=== PATIENT | male | born 1935 | race Two or more races ===

== ENCOUNTER 2017-07-09 14:09 | Inpatient (IN) | payer MEDICARE, MEDICAID ==
[~2017-07-09] VITALS: Ht 167.6 cm; Wt 75.1 kg
[2017-07-09] MEDS ORDERED: ALBUTEROL SULF 2.5 MG/0.5ML(0.5%) NEB SOLN HHN ONE (14:45)
[2017-07-09] MEDS ORDERED: methylPREDNISolone SOD SUCC 125 MG/2 ML VL IV ONE (14:45)
[2017-07-09] MEDS ORDERED: IPRATROPIUM BROM 0.5 MG/2.5ML INH SOL HHN ONE (14:45)
[2017-07-09 16:07] LABS: Basophils # (auto) 0 uL; Basophils % (auto) 0.4 % (0.0-2.0); Eosinophils # (auto) 0.2 uL; Eosinophils % (auto) 1.6 % (0.0-7.0); Hematocrit 45.7 % (41.0-53.0); Hemoglobin 14.9 g/dL (13.5-17.5); Lymphocytes # (auto) 1.7 uL; Lymphocytes % (auto) 13.6 % (10.0-50.0); Mean Corpuscular Hemoglobin 29.1 pg (28.0-32.0); Mean Corpuscular Hgb Conc. 32.7 g/dL (32.0-36.0); Mean Corpuscular Volume 89.2 fL (80.0-100.0); Monocytes # (auto) 1.6 uL; Monocytes % (auto) 13.2 % (0.0-12.0); Neutrophils # (auto) 8.9 uL; Neutrophils % (auto) 71.2 % (37.0-80.0); Nucleated Red Blood Cells % 0.1 %; Platelet Count (auto) 281 10^3/uL (140-450); Red Blood Cells 5.12 10^6/uL (4.5-5.90); Red Cell Distribution Width 13.8 % (11.8-14.3); White Blood Cell 12.5 10^3/uL (4.4-10.8)
[2017-07-09 16:23] LABS: Albumin 3.5 g/dL (3.4-5.0); BUN/Creatinine Ratio 12.1; Bilirubin, Total 0.6 mg/dL (0.2-1.0); Calcium 8.9 mg/dL (8.5-10.1); Total Protein 8.4 g/dL (6.4-8.2)
[2017-07-09 16:25] LABS: Lactic Acid w/Reflex 2.8 mmol/L (0.4-2.0)
[2017-07-09] MEDS ORDERED: cefTRIAXone 1GM/10ml IVPUSH 10 ML IV ONE (17:15)
[2017-07-09] MEDS ORDERED: MORPHINE SULF INJ 2 MG/ML SYRINGE 1ML IV PRN ×2 (19:30)
[2017-07-09] MEDS ORDERED: LORazepam 0.5 MG TAB PO PRN (19:30)
[2017-07-09] MEDS ORDERED: DOCUSATE SOD 100 MG CAP PO PRN (19:30)
[2017-07-09] MEDS ORDERED: ONDANSETRON HCL 4 MG/2 ML VIAL IV PRN (19:30)
[2017-07-09] MEDS ORDERED: TEMAZEPAM 15 MG CAP PO PRN (19:30)
[2017-07-09] MEDS ORDERED: NITROGLYCERIN 0.4 MG SL TAB SL PRN (19:30)
[2017-07-09] MEDS ORDERED: METOCLOPRAMIDE HCL 5MG/ml INJ 2ml VIAL IV PRN (19:30)
[2017-07-09] MEDS ORDERED: HYDROcodone-ACET 5/325MG TAB PO PRN (19:30)
[2017-07-09] MEDS ORDERED: ACETAMINOPHEN 325 MG TAB PO PRN (19:30)
[2017-07-09] MEDS: methylPREDNISolone SOD SUCC 40 MG/ML VL IV SCH (19:53)
[2017-07-09] MEDS: SOD CHL 0.45% 1,000 ML IV SCH ×2 (19:53→22:01)
[2017-07-09 20:15] VITALS: BP 117/63
[2017-07-09 20:27] LABS: Urine Blood Negative /uL (Negative); Urine Specific Gravity 1.017 (1.001-1.035)
[2017-07-09 20:35] LABS: Urine Bacteria 1+ /hpf (None Seen); Urine WBC 30 /hpf (0 - 3)
[2017-07-09 20:56] VITALS: BP 148/75
[2017-07-09 22:10] VITALS: BP 117/63
[2017-07-10] MEDS ORDERED: [UNRECOGNIZED DRUG - CODE] IN (01:09)
[2017-07-10] MEDS ORDERED: TIOTCAP IN (01:09)
[2017-07-10] MEDS ORDERED: POM (01:09)
[2017-07-10 05:40] VITALS: BP 116/62
[2017-07-10] MEDS: methylPREDNISolone SOD SUCC 40 MG/ML VL IV SCH ×3 (06:06→18:02)
[2017-07-10 07:19] LABS: Basophils # (auto) 0 uL; Basophils % (auto) 0.4 % (0.0-2.0); Eosinophils # (auto) 0 uL; Hematocrit 41.3 % (41.0-53.0); Hemoglobin 13.9 g/dL (13.5-17.5); Lymphocytes # (auto) 0.8 uL; Lymphocytes % (auto) 7.6 % (10.0-50.0); Mean Corpuscular Hemoglobin 29.7 pg (28.0-32.0); Mean Corpuscular Hgb Conc. 33.6 g/dL (32.0-36.0); Mean Corpuscular Volume 88.2 fL (80.0-100.0); Monocytes # (auto) 0.4 uL; Monocytes % (auto) 4.4 % (0.0-12.0); Neutrophils # (auto) 8.8 uL; Neutrophils % (auto) 87.6 % (37.0-80.0); Nucleated Red Blood Cells % 0.1 %; Platelet Count (auto) 264 10^3/uL (140-450); Red Blood Cells 4.68 10^6/uL (4.5-5.90); Red Cell Distribution Width 13.7 % (11.8-14.3); White Blood Cell 10.1 10^3/uL (4.4-10.8)
[2017-07-10 07:28] LABS: Albumin 2.9 g/dL (3.4-5.0); Calcium 8.5 mg/dL (8.5-10.1); Potassium 4.6 mmol/L (3.5-5.1)
[2017-07-10 07:33] LABS: BUN/Creatinine Ratio 15.4; Bilirubin, Total 0.4 mg/dL (0.2-1.0); Total Protein 7.4 g/dL (6.4-8.2)
[2017-07-10] MEDS: ALBUTEROL SULF 2.5 MG/0.5ML(0.5%) NEB SOLN NEB PRN ×3 (07:42→19:06)
[2017-07-10 09:00] VITALS: BP 130/70
[2017-07-10] MEDS ORDERED: cefTRIAXone 1GM/10ml IVPUSH 10 ML IV ONE (10:00)
[2017-07-10 13:00] VITALS: BP 129/61
[2017-07-10 17:06] VITALS: BP 115/60
[2017-07-10 20:00] VITALS: BP 105/62
[2017-07-10] MEDS ORDERED: PIPERACILLIN-TAZOB 3.375GM 50 ML IV ONE (22:00)
[2017-07-10 22:03] VITALS: BP 123/72
[2017-07-11] MEDS: methylPREDNISolone SOD SUCC 40 MG/ML VL IV SCH ×4 (00:22→18:19)
[2017-07-11] MEDS: ALBUTEROL SULF 2.5 MG/0.5ML(0.5%) NEB SOLN NEB PRN ×3 (00:44→19:27)
[2017-07-11] MEDS: SOD CHL 0.45% 1,000 ML IV SCH ×2 (04:54→09:51)
[2017-07-11 05:37] VITALS: BP 91/44
[2017-07-11] MEDS: PIPERACILLIN-TAZOB 3.375GM 50 ML IV SCH ×3 (06:47→18:19)
[2017-07-11 09:00] VITALS: BP 79/51
[2017-07-11] MEDS ORDERED: cefTRIAXone 1GM/10ml IVPUSH 10 ML IV SCH (09:00)
[2017-07-11 13:00] VITALS: BP 139/77
[2017-07-11 20:00] VITALS: BP 120/70
[2017-07-11 23:03] VITALS: BP 120/70
[2017-07-12] MEDS: methylPREDNISolone SOD SUCC 40 MG/ML VL IV SCH ×4 (00:15→17:24)
[2017-07-12] MEDS: PIPERACILLIN-TAZOB 3.375GM 50 ML IV SCH ×3 (00:15→12:19)
[2017-07-12] MEDS: ALBUTEROL SULF 2.5 MG/0.5ML(0.5%) NEB SOLN NEB PRN ×3 (03:52→19:32)
[2017-07-12 04:58] VITALS: BP 149/80
[2017-07-12 08:03] VITALS: BP 115/60
[2017-07-12] MEDS: SOD CHL 0.45% 1,000 ML IV SCH (14:09)
[2017-07-12 14:10] VITALS: BP 120/70
[2017-07-12] MEDS ORDERED: DOXYCYCLINE 100 MG TAB/CAP PO ONE (14:45)
[2017-07-12 17:30] VITALS: BP 118/69
[2017-07-12 22:00] VITALS: BP 153/83
[2017-07-12] MEDS: DOXYCYCLINE 100 MG TAB/CAP PO SCH (22:40)
[2017-07-13] MEDS: methylPREDNISolone SOD SUCC 40 MG/ML VL IV SCH ×5 (00:17→23:35)
[2017-07-13] MEDS: ALBUTEROL SULF 2.5 MG/0.5ML(0.5%) NEB SOLN NEB PRN ×4 (04:09→20:00)
[2017-07-13 04:52] VITALS: BP 153/83
[2017-07-13 05:00] VITALS: BP 151/82
[2017-07-13] MEDS: SOD CHL 0.45% 1,000 ML IV SCH ×2 (05:53→22:10)
[2017-07-13 08:30] VITALS: BP 138/80
[2017-07-13] MEDS: DOXYCYCLINE 100 MG TAB/CAP PO SCH ×2 (10:11→22:11)
[2017-07-13 12:30] VITALS: BP 136/70
[2017-07-13 21:42] VITALS: BP 150/76
[2017-07-14 05:29] VITALS: BP 152/78
[2017-07-14] MEDS: methylPREDNISolone SOD SUCC 40 MG/ML VL IV SCH ×3 (05:42→17:31)
[2017-07-14] MEDS: ALBUTEROL SULF 2.5 MG/0.5ML(0.5%) NEB SOLN NEB PRN ×2 (07:40→22:40)
[2017-07-14 09:00] VITALS: BP 169/77
[2017-07-14] MEDS: DOXYCYCLINE 100 MG TAB/CAP PO SCH ×2 (09:39→21:30)
[2017-07-14 13:00] VITALS: BP 125/59
[2017-07-14] MEDS: IPRATROPIUM BROM 0.5 MG/2.5ML INH SOL NEB SCH ×2 (14:00→18:48)
[2017-07-14] MEDS: ALBUTEROL SULF 2.5 MG/0.5ML(0.5%) NEB SOLN NEB SCH ×2 (14:00→18:48)
[2017-07-14] MEDS: SOD CHL 0.45% 1,000 ML IV SCH (16:53)
[2017-07-14 16:57] VITALS: BP 144/70
[2017-07-14] MEDS: BUDESONIDE (INHALATION) 0.5 MG/2 ML NEB NEB SCH (18:46)
[2017-07-14 22:00] VITALS: BP 127/59
[2017-07-15] MEDS: methylPREDNISolone SOD SUCC 40 MG/ML VL IV SCH ×4 (00:41→18:26)
[2017-07-15 05:05] VITALS: BP 146/74
[2017-07-15] MEDS: IPRATROPIUM BROM 0.5 MG/2.5ML INH SOL NEB SCH ×4 (07:22→18:33)
[2017-07-15] MEDS: ALBUTEROL SULF 2.5 MG/0.5ML(0.5%) NEB SOLN NEB SCH ×4 (07:22→18:33)
[2017-07-15] MEDS: BUDESONIDE (INHALATION) 0.5 MG/2 ML NEB NEB SCH ×2 (07:22→18:33)
[2017-07-15] MEDS: SOD CHL 0.45% 1,000 ML IV SCH (08:46)
[2017-07-15 09:00] VITALS: BP 135/65
[2017-07-15] MEDS: DOXYCYCLINE 100 MG TAB/CAP PO SCH ×2 (09:16→22:03)
[2017-07-15 12:01] VITALS: BP 133/70
[2017-07-15 12:11] VITALS: BP 133/70
[2017-07-15 16:37] VITALS: BP 128/74
[2017-07-15 22:00] VITALS: BP 137/71
[2017-07-16] MEDS: SOD CHL 0.45% 1,000 ML IV SCH (01:35)
[2017-07-16 05:00] VITALS: BP 158/82
[2017-07-16] MEDS: methylPREDNISolone SOD SUCC 40 MG/ML VL IV SCH ×3 (05:28→11:51)
[2017-07-16] MEDS: IPRATROPIUM BROM 0.5 MG/2.5ML INH SOL NEB SCH ×4 (06:00→19:29)
[2017-07-16] MEDS: ALBUTEROL SULF 2.5 MG/0.5ML(0.5%) NEB SOLN NEB SCH ×4 (06:00→19:29)
[2017-07-16 08:30] VITALS: BP 138/59
[2017-07-16] MEDS: DOXYCYCLINE 100 MG TAB/CAP PO SCH ×2 (09:45→22:16)
[2017-07-16] MEDS: BUDESONIDE (INHALATION) 0.5 MG/2 ML NEB NEB SCH ×2 (10:00→19:28)
[2017-07-16 10:24] VITALS: BP 138/59
[2017-07-16 13:15] VITALS: BP 147/81
[2017-07-16 16:54] VITALS: BP 127/63
[2017-07-16 22:00] VITALS: BP 130/67
[2017-07-17 05:00] VITALS: BP 116/59
[2017-07-17] MEDS: IPRATROPIUM BROM 0.5 MG/2.5ML INH SOL NEB SCH ×4 (06:41→19:37)
[2017-07-17] MEDS: ALBUTEROL SULF 2.5 MG/0.5ML(0.5%) NEB SOLN NEB SCH ×4 (06:41→19:37)
[2017-07-17 06:56] LABS: Hematocrit 44.9 % (41.0-53.0); Hemoglobin 14.8 g/dL (13.5-17.5); Mean Corpuscular Hemoglobin 29.2 pg (28.0-32.0); Mean Corpuscular Volume 88.5 fL (80.0-100.0); Platelet Count (auto) 220 10^3/uL (140-450); Red Blood Cells 5.07 10^6/uL (4.5-5.90); Red Cell Distribution Width 13.9 % (11.8-14.3); White Blood Cell 18.5 10^3/uL (4.4-10.8)
[2017-07-17 06:59] LABS: BUN/Creatinine Ratio 32.2; Calcium 8.6 mg/dL (8.5-10.1); Potassium 4.8 mmol/L (3.5-5.1)
[2017-07-17 07:19] LABS: Basophils % (manual) 0 (0.0-2.0); Blast Cells 0; Eosinophils % (manual) 0 (0-7); Promyelocytes % 0; Reactive Lymphocytes 0
[2017-07-17 09:00] VITALS: BP 152/70
[2017-07-17] MEDS: DOXYCYCLINE 100 MG TAB/CAP PO SCH ×2 (09:33→22:00)
[2017-07-17] MEDS: predniSONE 20 MG TAB PO SCH (09:33)
[2017-07-17] MEDS: BUDESONIDE (INHALATION) 0.5 MG/2 ML NEB NEB SCH ×2 (10:12→22:49)
[2017-07-17 11:37] LABS: Band Neutrophils % (manual) 3; Lymphocytes % (manual) 15 (10.0-50.0); Metamyelocytes % 1; Monocytes % (manual) 8 (0-12); Myelocytes % 1
[2017-07-17 13:00] VITALS: BP 114/69
[2017-07-17 17:41] VITALS: BP 110/54
[2017-07-17 21:28] VITALS: BP 120/71
[2017-07-18 05:29] VITALS: BP 140/79
[2017-07-18] MEDS: IPRATROPIUM BROM 0.5 MG/2.5ML INH SOL NEB SCH ×2 (06:33→10:30)
[2017-07-18] MEDS: ALBUTEROL SULF 2.5 MG/0.5ML(0.5%) NEB SOLN NEB SCH ×2 (06:33→10:30)
[2017-07-18 08:02] VITALS: BP 133/64
[2017-07-18] MEDS: BUDESONIDE (INHALATION) 0.5 MG/2 ML NEB NEB SCH (10:30)
[2017-07-18] MEDS: DOXYCYCLINE 100 MG TAB/CAP PO SCH (11:00)
[2017-07-18] MEDS: predniSONE 20 MG TAB PO SCH (11:01)
[2017-07-18 11:57] VITALS: BP 122/66
== END 2017-07-18 19:09 | disposition home or self-care (01) | DRG 193 ==
LOC: ER 14:09 → OVERFLOW 14:10 → EAST 20:15
PROVIDERS: ADMIT Internal Medicine; ATTEND Internal Medicine Pulmonary Disease
DX: J18.9 Pneumonia, unspecified organism (principal); N17.0 Acute kidney failure with tubular necrosis; J96.01 Acute respiratory failure with hypoxia; J96.02 Acute respiratory failure with hypercapnia; J44.1 Chronic obstructive pulmonary disease with (acute) exacerbation; J44.0 Chronic obstructive pulmonary disease with (acute) lower respiratory infection; E44.1 Mild protein-calorie malnutrition; J20.9 Acute bronchitis, unspecified; N18.3 Chronic kidney disease, stage 3 (moderate); Z82.49 Family history of ischemic heart disease and other diseases of the circulatory system; Z87.891 Personal history of nicotine dependence; Z90.49 Acquired absence of other specified parts of digestive tract
CPT/HCPCS: 36415; 36600; 71046; 74022; 80048; 80053; 81001; 82805; 83605; 83735; 83880; 84484; 85007; 85025; 85027; 85379; 87040; 93005; 94640; 96374; 96375; J2543

== ENCOUNTER 2020-01-18 20:51 | Emergency (ER) | payer MEDICARE, MEDICAID ==
[~2020-01-18] VITALS: Ht 160 cm; Wt 77.1 kg
[~2020-01-18 20:51] MED LIST: POM; TIOTCAP IN; [UNRECOGNIZED DRUG - CODE] IN
[2020-01-18 21:32] LABS: Urine WBC None Seen /hpf (0 - 3)
[2020-01-18 21:44] LABS: Urine Bacteria NONE SEEN /hpf (None Seen); Urine Blood Negative /uL (Negative); Urine Specific Gravity 1.013 (1.001-1.035)
[2020-01-18 22:23] LABS: Basophils # (auto) 0.1 10 ^3/uL (0-0.2); Basophils % (auto) 0.5 % (0.0-2.0); Eosinophils # (auto) 0.2 10 ^3/uL (0-0.8); Eosinophils % (auto) 1.9 % (0.0-7.0); Hematocrit 50.4 % (41.0-53.0); Hemoglobin 16.4 g/dL (13.5-17.5); Lymphocytes # (auto) 1.7 10 ^3/uL (0.4-5.4); Lymphocytes % (auto) 15.9 % (10.0-50.0); Mean Corpuscular Hemoglobin 28.7 pg (28.0-32.0); Mean Corpuscular Hgb Conc. 32.4 g/dL (32.0-36.0); Mean Corpuscular Volume 88.3 fL (80.0-100.0); Monocytes # (auto) 1.2 10 ^3/uL (0-1.3); Monocytes % (auto) 11.7 % (0.0-12.0); Neutrophils # (auto) 7.4 10 ^3/uL (1.6-8.6); Nucleated Red Blood Cells % 0.3 %; Platelet Count (auto) 168 10^3/uL (140-450); Red Blood Cells 5.71 10^6/uL (4.5-5.90); Red Cell Distribution Width 14.6 % (11.8-14.3); White Blood Cell 10.5 10^3/uL (4.4-10.8)
[2020-01-18] MEDS ORDERED: methylPREDNISolone SOD SUCC 125 MG/2 ML VL IV ONE (22:30)
[2020-01-18] MEDS ORDERED: SODIUM CHLORIDE 0.9% 500 ML IV ONE (22:30)
[2020-01-18 22:34] LABS: Albumin 4.1 g/dL (3.4-5.0); Anion Gap 3 (5-15); Blood Urea Nitrogen 25 mg/dL (7-18); Calcium 9.1 mg/dL (8.5-10.1); Carbon Dioxide 28 mmol/L (21-32); Chloride 106 mmol/L (98-107); Glucose 90 mg/dL (74-106); Lipase 181 U/L (73-393); Potassium 4.8 mmol/L (3.5-5.1); Sodium 137 mmol/L (136-145)
[2020-01-18 22:37] LABS: Alanine Aminotransferase 23 U/L (16-61); Aspartate Aminotransferase 17 U/L (15-37); BUN/Creatinine Ratio 12.4; GFR African American 41 mL/min; GFR Non-African American 34 mL/min
[2020-01-18 22:41] LABS: Alkaline Phosphatase 79 U/L (45-117); Bilirubin, Total 1.2 mg/dL (0.2-1.0); Total Protein 8.5 g/dL (6.4-8.2)
[2020-01-18] MEDS ORDERED: ALBUTEROL SULF 2.5 MG/0.5ML(0.5%) NEB SOLN NEB ONE (22:45)
[2020-01-18] MEDS ORDERED: IPRATROPIUM BROM 0.5 MG/2.5ML INH SOL NEB ONE (22:45)
[2020-01-18] MEDS ORDERED: methylPREDNISolone SOD SUCC 125 MG/2 ML VL ONE (22:46)
[2020-01-19] VITALS: BP 147/57
== END 2020-01-19 00:26 | disposition home or self-care (01) ==
LOC: ER 20:51
DX: S39.011A Strain of muscle, fascia and tendon of abdomen, initial encounter (principal); J44.9 Chronic obstructive pulmonary disease, unspecified; J20.9 Acute bronchitis, unspecified; Z90.49 Acquired absence of other specified parts of digestive tract; Z87.891 Personal history of nicotine dependence; X58.XXXA Exposure to other specified factors, initial encounter; Y93.B2 Activity, push-ups, pull-ups, sit-ups; Y92.89 Other specified places as the place of occurrence of the external cause; Y99.8 Other external cause status
CPT/HCPCS: 36415; 71045; 74176; 80053; 81001; 83690; 83880; 84484; 85025; 93005; 94640; 96374; 99285; J2930; J7040; J7644